=== PATIENT | male | born 1985 | race Caucasian/White ===

== ENCOUNTER 2017-12-11 13:21 | Emergency (ER) | payer OTHER ==
[~2017-12-11] VITALS: Ht 170.2 cm; Wt 100.2 kg
[2017-12-11 13:39] VITALS: Ht 170.2 cm; Wt 100.2 kg
[2017-12-11 16:58] VITALS: BP 112/69
== END 2017-12-11 16:58 | disposition home or self-care (01) ==
LOC: ED 13:21
DX: J40 Bronchitis, not specified as acute or chronic (principal); J06.9 Acute upper respiratory infection, unspecified

== ENCOUNTER 2017-12-24 18:04 | Emergency (ER) | payer OTHER ==
[2017-12-24 19:28] VITALS: BP 131/80
== END 2017-12-24 19:28 | disposition home or self-care (01) ==
LOC: ED 18:04
DX: R05 Cough (principal); R03.0 Elevated blood-pressure reading, without diagnosis of hypertension

== ENCOUNTER 2018-05-23 13:16 | Emergency (ER) | payer MEDICAID ==
[~2018-05-23] VITALS: Ht 170.2 cm; Wt 98.7 kg
[2018-05-23 13:30] VITALS: Ht 170.2 cm; Wt 98.7 kg
[2018-05-23 14:51] VITALS: BP 125/70
== END 2018-05-23 14:51 | disposition home or self-care (01) ==
LOC: ED 13:16
DX: J06.9 Acute upper respiratory infection, unspecified (principal); J98.01 Acute bronchospasm

== ENCOUNTER 2018-10-15 20:40 | Emergency (ER) | payer MEDICAID ==
[~2018-10-15] VITALS: Ht 170.2 cm; Wt 105.7 kg
[2018-10-15 22:12] LABS: BASOPHIL % 0.5 % (0-2); PLATELET COUNT 248 x10^3mcL (130-400); RED CELL DISTRIBUTION WIDTH 12.9 % (11.5-14.5)
[2018-10-15 22:14] LABS: microscopic required? YES; urine erythrocyte TRACE (NEGATIVE)
[2018-10-15 22:25] LABS: CALCIUM 9.5 mg/dL (8.5-10.1); CARBON DIOXIDE 30.1 mmol/L (21-32); CHLORIDE SERUM 101 mmol/L (98-107); GFR1 > 60 mL/min; GLUCOSE SERUM 91 mg/dL (74-106); POTASSIUM SERUM 4.1 mmol/L (3.5-5.1); SODIUM SERUM 139 mmol/L (136-145)
[2018-10-15 22:32] LABS: AMPHETAMINE QUAL UR NONE DETECTED (See below)
[2018-10-15 22:34] LABS: ALBUMIN 4.1 g/dL (3.4-5.0); ALKALINE PHOSPHATASE 64 U/L (46-116); ALT/SGPT 59 U/L (16-63); AST/SGOT 21 U/L (15-37); BILIRUBIN TOTAL 0.3 mg/dL (0.20-1.00); LIPASE 349 IU/L (73-393); TOTAL PROTEIN, SERUM 8.2 g/dL (6.4-8.2)
[2018-10-15 22:35] LABS: AMYLASE 125 U/L (25-115)
[2018-10-16 00:06] VITALS: BP 115/36
== END 2018-10-16 00:06 | disposition home or self-care (01) ==
LOC: ED 20:40
PROVIDERS: Emergency Medicine
DX: K59.00 Constipation, unspecified (principal); Z90.89 Acquired absence of other organs
CPT/HCPCS: J1885

== ENCOUNTER 2019-03-14 18:27 | Emergency (ER) | payer MEDICAID ==
[~2019-03-14] VITALS: Ht 170.2 cm; Wt 107.5 kg
[2019-03-14 18:34] VITALS: Ht 170.2 cm; Wt 107.5 kg
[2019-03-14 20:00] VITALS: BP 154/57
== END 2019-03-14 20:00 | disposition home or self-care (01) ==
LOC: ED 18:27
DX: J02.9 Acute pharyngitis, unspecified (principal); M79.10 Myalgia, unspecified site; Z90.89 Acquired absence of other organs

== ENCOUNTER 2019-06-15 23:57 | Emergency (ER) | payer MEDICAID ==
[~2019-06-15] VITALS: Ht 170.2 cm; Wt 111.1 kg
[2019-06-16 00:05] VITALS: BP 117/80; Ht 170.2 cm; Wt 111.1 kg
== END 2019-06-16 02:52 | disposition left against medical advice (07) ==
LOC: ED 23:57
DX: Z53.21 Procedure and treatment not carried out due to patient leaving prior to being seen by health care provider (principal)